=== PATIENT | female | born 1985 ===

== ENCOUNTER 2017-12-31 09:28 | Emergency (ER) | payer OTHER ==
[~2017-12-31] VITALS: Ht 144.8 cm; Wt 68.0 kg
[2017-12-31] MEDS ORDERED: PRENATABS FA T1 EACH (10:04)
== END 2017-12-31 14:12 | disposition home or self-care (01) ==
LOC: ER 09:28
DX: O20.8 Other hemorrhage in early pregnancy (principal); O43.891 Other placental disorders, first trimester; Z34.01 Encounter for supervision of normal first pregnancy, first trimester

== ENCOUNTER 2018-08-21 01:09 | Inpatient (IN) | payer OTHER ==
[~2018-08-21] VITALS: Ht 144.8 cm; Wt 85.3 kg
[~2018-08-21 01:09] MED LIST: PRENATABS FA T1 EACH
[2018-08-21] MEDS ORDERED: IRON PO (01:54)
[2018-08-23] MEDS ORDERED: IRON18 MG PO (16:19)
== END 2018-08-24 17:04 | disposition home or self-care, planned readmission (81) | DRG 775 ==
LOC: OBS/DEL 01:09 → LDR 14:33 → OBS/DEL 14:33 → OB/GYN 08-22 06:45
PROC: 4A1HXCZ Monitoring of Products of Conception, Cardiac Rate, External Approach (ICD-10-PCS; 2018-08-21)
PROC: 0UQGXZZ Repair Vagina, External Approach (ICD-10-PCS; principal; 2018-08-22)
PROC: 10E0XZZ Delivery of Products of Conception, External Approach (ICD-10-PCS; 2018-08-22)
DX: O71.4 Obstetric high vaginal laceration alone (principal); Z3A.39 39 weeks gestation of pregnancy; Z37.0 Single live birth